=== PATIENT | male | born 1990 ===

== ENCOUNTER 2024-12-05 13:47 | Outpatient (REF) | payer MEDICAID, SELFPAY ==
[2024-12-05 21:24] LABS: HCT 47.2 % (40.0-50.0); HGB 15.6 g/dL (13.5-17.5); MCH 29.8 pg (27.0-33.0); MCHC 33.1 % (32.0-36.0); MCV 90 fL (80-95); MPV 10.5 fL (8.0-11.0); Platelet Count 330 10^3/uL (130-400); RBC 5.24 10^6/uL (4.36-5.78); RDW 11.8 % (11.8-14.1); RDW-SD 38.8 fL; WBC 6.44 10^3/uL (4.4-10.8)
[2024-12-05 21:55] LABS: ALT 48 U/L (16-63); AST 29 U/L (15-37); Albumin 4.5 g/dL (3.4-5.0); Alkaline Phosphatase 82 U/L (46-116); Anion Gap 10.3 mmol/L (3-11); BUN 18 mg/dL (7-18); Bilirubin, Total 0.6 mg/dL (0.2-1.0); CO2 27.7 mmol/L (21.0-32.0); CREATININE 1.1 mg/dL (0.70-1.30); Calcium 9.8 mg/dL (8.5-10.1); Calculated LDL 127 mg/dL (<100); Chloride 104 mmol/L (98-107); Cholesterol 189 mg/dL (<200); Estimated GFR 89.22 (mL/min/1.73m2); Glucose 86 mg/dL (74-106); HDL Cholesterol 52 mg/dL (>or=40); Potassium 4.3 mmol/L (3.5-5.1); Sodium 142 mmol/L (136-145); Total Protein 7.8 g/dL (6.4-8.2); Triglyceride 52 mg/dL (<150)
[2024-12-05 21:57] LABS: Hemoglobin A1C 5.5 % (<5.7)
== END 2024-12-05 13:48 | disposition home or self-care (01) ==
LOC: NCHCN 13:47
PROVIDERS: Visit Provider Physician Assistant
DX: R03.0 Elevated blood-pressure reading, without diagnosis of hypertension (principal); Z13.220 Encounter for screening for lipoid disorders; Z13.1 Encounter for screening for diabetes mellitus
CPT/HCPCS: 80053; 80061; 85027; 83036